=== PATIENT | male | born 1965 | race Hispanic/Latino ===

== ENCOUNTER 2020-11-28 16:31 | Emergency (ER) | payer BC, SELFPAY ==
[2020-11-28 16:50] VITALS: BP 151/75; PULSE 86; RESP 18; TEMP 36.1; O2SAT 100
--- NOTE | 2020-11-28 16:55 | ED.CHESTPAIN ---
HPI - Chest Pain General Chief Complaint: Chest Pain Stated Complaint: Chest Pain Time Seen by Provider: 11/28/20 16:50 Source: patient and RN notes reviewed Mode of arrival: ambulatory Limitations: no limitations History of Present Illness HPI narrative: 55-year-old male presents to the [facility] with complaints of left-sided chest pain that is gradually gotten worse over the last 5 days. Increased fatigue with shortness of breath. Denies fevers, abdominal pain. No nausea vomiting or diarrhea. Patient states he feels like he has a chest tightness. Reports that it feels like his heart is racing at times. States my heart is not working right. Patient got concerned when he tried working and walking and he just got so fatigued he could not work. Related Data Allergies Allergy/AdvReac Type Severity Reaction Status Date / Time Penicillins Allergy Unknown Verified 06/26/12 08:52 Review of Systems Review of Systems: All systems reviewed & are unremarkable except as noted in HPI and below Constitutional: Constitutional: Reports no additional constitutional complaints, Denies chills and Denies fever(s) Eyes: Eyes: Reports no additional eye complaints ENT: Reports system reviewed and no additional complaints, except as documented Cardiovascular: Cardiovascular: Reports as per HPI, Reports chest pain and Reports rapid heart rate Respiratory: Respiratory: Reports as per HPI, Denies cough, Reports dyspnea and Denies wheezing Gastrointestinal: Gastrointestinal: Reports no additional gastrointestinal complaints Genitourinary: Genitourinary: Reports no additional male genitourinary complaints Musculoskeletal: Musculoskeletal: Reports no additional musculoskeletal complaints Integumentary/Breasts: Skin/Breast: Reports system reviewed and no additional complaints, except as docu Neurologic: Reports system reviewed and no additional complaints, except as documented Psychiatric: Psychiatric: Reports no additional psychiatric complaints Allergic/Immunologic: Allergic/Immunologic: Reports no additional allergic/immunologic complaints [facility] Past Medical History Medical History (Updated 11/28/20 @ 17:24 by Shanique Taylor) Patient denies medical problems Patient denies significant medical history Surgical History Surgical History (Updated 11/28/20 @ 16:56 by Shanique Taylor) No significant past surgical history Social History Social History (Updated 11/28/20 @ 17:20 by Shanique Taylor) Gender identity (if verbalized by the patient): Male Comments At the time of my signature, I reviewed and agree with the nursing past medical, surgical, social, and family history. There is no relevant family history pertinent to the patient complaint. Exam Const: General: no acute distress and alert Nutritional Appearance: well nourished Orientation/consciousness: patient oriented x3 Limitations: no limitations HENMT: Head: normal to inspection Eyes: Pupils: Equal, round and reactive pupils present Neck: Neck: normal visual inspection, no lymphadenopathy and no meningeal signs Chest: Chest palpation & inspection: normal inspection of the chest Resp: Effort & Inspection: normal respiratory effort and no use of accessory muscles Auscultation: clear to auscultation bilaterally, no crackles, no rales, no rhonchi and no wheezes Cardio: Rate: regular rate Rhythm: regular rhythm GI: GI Palp: Yes Soft to palpation and No Tenderness to palpation present (GI) Back/Spine/Pelvis: Back: no CVA tenderness Skin: General skin exam: normal color Rashes: no rashes Wounds: no wounds Neuro: General: patient oriented x3, moves all extremities, no meningeal signs and no focal motor deficits Speech: normal speech Gait exam (Neuro): Normal gait present Extrem: General: normal to inspection and no pedal edema Psych: Appearance: grossly normal and well kempt Mental Status: mental status grossly normal Affect: normal affect Attitude: co
--- NOTE | 2020-11-28 16:57 | ECG_ITS ---
Measurements Intervals [place] Rate: 81 P: 66 [place]: 148 QRS: 18 QRSD: 81 T: 35 QT: 364 QTc: 424 Interpretive Statements SINUS RHYTHM EARLY PRECORDIAL R/S TRANSITION BASELINE ARTIFACT- I, II, III, AVR, AVL, AVF, V1 BORDERLINE ECG Electronically Signed On 11-29-2020 8:02:01 CDT by José Miguel Omalley D.O.
== END 2020-11-28 17:01 | disposition short-term general hospital (02) ==
LOC: EXPCOLL 16:40
PROVIDERS: Emergency Provider Nurse Practitioner
DX: R07.9 Chest pain, unspecified (principal)
CPT/HCPCS: 93005; 99213; G0463

== ENCOUNTER 2020-11-28 17:21 | Inpatient (IN) | payer BC, SELFPAY ==
--- NOTE | ~2020-11-28 | NM_ITS ---
EXAMINATION: NM GI bleeding DATE: 12/01/2020 11:05 INDICATION: Ongoing gastrointestinal bleed TECHNIQUE: 24.5 mCi Tc 99m in vitro labeled red cells administered intravenously. Scintigraphic imag es of the abdomen were obtained through 1 hour. FINDINGS: No pattern of abnormal activity is seen in the abdomen or pelvis to suggest gastrointestina l hemorrhage. IMPRESSION: 1. No scintigraphic evidence for active gastrointestinal bleeding. Reviewed, dictated and finalized at location A.
--- NOTE | ~2020-11-28 | XR_ITS ---
XR chest 2V DATE: 11/28/2020 17:50 INDICATION: Left-sided chest pressure. Weakness. Headache for 5 days. TECHNIQUE: PA and lateral views COMPARISON: None FINDINGS: Normal heart size. No hilar or mediastinal enlargement. No pulmonary infiltrate or consolidation, pleural effusion or pulmonary vascular congestion or pneumo thorax is detected. There is mild dextroscoliosis of the thoracic spine. IMPRESSION: No active cardiopulmonary disease Reviewed, dictated and finalized at location A.
--- NOTE | ~2020-11-28 | CT_ITS ---
EXAMINATION: CTA abdomen pelvis DATE: 12/01/2020 16:10 INDICATION: GI bleeding, concern for aortoenteric fistula TECHNIQUE: Computed tomographic angiography (CTA) of the abdomen and pelvis was performed with 100 mL Omnipaque-350 intravenous contrast. Maximum intensity projection 3D-reconstructions of the aorta and other arteries were constructed by the technologist on a separate workstation. The dose-length produ ct (DLP) was 403.28 mGy-cm. Automated exposure control and iterative reconstruction technique were em ployed. COMPARISON: None. FINDINGS: Minimal dependent atelectasis is present in the lung bases. The heart size is normal. The a bdominal aorta is normal without evidence of aneurysm or dissection. The celiac axis, superior mesent ramesh artery, and inferior mesenteric artery are normal. There are single renal arteries bilaterally. There is a 6 mm hyperdense focus in the proximal/mid descending colon on image 85. The liver, spleen, pancreas, gallbladder, and adrenal glands are normal. The left kidney is unremarkable. There is a 1. 7 cm cyst of the right kidney. No pathologically enlarged abdominal or pelvic lymph nodes are identif ied. There is no free intraperitoneal gas or evidence of bowel obstruction. The appendix is normal. T here is a moderate to large sized diverticulum of the third portion of the duodenum. The appearance o f layering dependent intravenous contrast relates to mass effect on a tiny vessel coursing posterior to the diverticulum. There is moderate lumbar spondylosis. IMPRESSION: 1. Focal area of hyperattenuation in the descending colon which could reflect contrast extravasation or arteriovenous malformation. Absence of noncontrast comparison makes further characterization diffi cult. Reviewed, dictated and finalized at location A. IMPRESSION: 1. Focal area of hyperattenuation in the descending colon which could reflect c ontrast extravasation or arteriovenous malformation. Absence of noncontrast com parison makes further characterization difficult.
[2020-11-28 17:29] VITALS: BP 157/76; PULSE 88; RESP 16; TEMP 36.8; O2SAT 100
--- NOTE | 2020-11-28 17:31 | ECG_ITS ---
Measurements Intervals [place] Rate: 88 P: 59 CT: 149 QRS: 42 QRSD: 89 T: 45 QT: 359 QTc: 435 Interpretive Statements SINUS RHYTHM INCOMPLETE RIGHT BUNDLE BRANCH BLOCK BASELINE ARTIFACT- I, II, III BORDERLINE ECG Electronically Signed On 11-28-2020 19:49:16 CDT by José Miguel Omalley D.O.
[2020-11-28 17:44] LABS: Basophils Percent Auto 0.5 % (0.2-1.2); Eosinophils Absolute Auto 0.1 K/mm3 (0-0.3); Eosinophils Percent Auto 0.8 % (0-4.4); Immature Granulocyte Absolute 0.06 K/mm3 (0.00-0.031); Immature Granulocyte Percent A 0.7 % (0-0.5); Lymphocytes Percent Auto 23.7 % (18.3-44.2); Mean Corpuscular HGB Conc 32.7 g/dl (32-36); Mean Corpuscular Hemoglobin 33.1 pg (26-34); Mean Corpuscular Volume 101.3 fl (80-100); Monocytes Absolute Auto 0.5 K/mm3 (0.1-0.6); Monocytes Percent Auto 6.4 % (2.6-8.5); Neutrophils Absolute Auto 5.7 K/mm3 (1.3-6.7); Neutrophils Percent Auto 67.9 % (45.5-73.1); Nucleated Red Blood Cells Absolute Auto 0.1 K/mm3 (0.0-0.012); Nucleated Red Blood Cells Perc 0.8 % (0.0-0.2); Platelet Count Result 295 k/mm3 (150-375); Red Cell Distribution Width 17.5 % (11.5-14.5); White Blood Count 8.4 K/mm3 (4.5-10.0)
[2020-11-28 17:56] LABS: Alanine Aminotransferase 17 U/L (4-50); Albumin Level 3.4 g/dL (3.5-5.1); Alkaline Phosphatase 79 U/L (38-126); Anion Gap 6 mmol/L (8-16); Aspartate Amino Transferase 22 U/L (17-59); Bilirubin,Total < 0.1 mg/dL (0.2-1.3); Blood Urea Nitrogen 14 mg/dL (9-20); Calcium 8.3 mg/dL (8.4-10.2); Carbon Dioxide 22 mmol/L (22-30); Chloride 110 mmol/L (98-107); Estimated CRCL calculation 95 ml/min; Estimated Glomerular Filt Rate > 60; Glucose 112 mg/dL (65-110); Potassium 3.7 mmol/L (3.4-5.0); Sodium 138 mmol/L (137-145)
[2020-11-28 17:59] LABS: Hematocrit 16.2 % (42.0-52.0); Hemoglobin 5.3 g/dL (14.0-18.0)
[2020-11-28 18:11] VITALS: BP 159/74; PULSE 85; RESP 20; O2SAT 98
--- NOTE | 2020-11-28 18:16 | ED.GENADULT ---
HPI - General Adult General Chief complaint: Weakness Stated complaint: Headache x 5 days Time Seen by Provider: 11/28/20 18:07 Source: patient History of Present Illness HPI narrative: Patient is a 55 y/o male complaining of severe weakness for about 5 days. He states that minimal exertion like walking short distance makes his symptoms worse. He also has some sore throat, headache. He has no fever or cough. He noticed some dark stools. He has no abdominal pain. Related Data Home Medications Medication Instructions Recorded Confirmed No Home Medications 11/28/20 11/28/20 Allergies Allergy/AdvReac Type Severity Reaction Status Date / Time Penicillins Allergy Unknown Unknown Verified 11/28/20 18:17 Review of Systems Constitutional: Constitutional: Denies chills, Denies fever(s), Reports headache(s), Reports lethargy, Reports malaise and Denies weakness Eyes: Eyes: Denies blurry vision ENT: Reports headache(s), Denies neck pain and Reports sore throat Cardiovascular: Cardiovascular: Denies chest pain and Denies dyspnea Respiratory: Respiratory: Denies cough and Denies dyspnea Gastrointestinal: Gastrointestinal: Denies abdominal pain, Reports melena, Denies diarrhea, Denies nausea and Denies vomiting Genitourinary: Genitourinary: Denies hematuria and Denies dysuria Musculoskeletal: Musculoskeletal: Denies back pain and Denies neck pain Neurologic: Reports headache(s) and Reports weakness PMFSH Past Medical History Medical History Patient denies medical problems Patient denies significant medical history Surgical History Surgical History No significant past surgical history Social History Social History Gender identity (if verbalized by the patient): Male Exam Const: General: no acute distress and well developed Orientation/consciousness: oriented to person, oriented to place, oriented to time and patient oriented x3 HENMT: Head: normocephalic Ears: external ears normal General nose exam: Normal external nose present Eyes: General: appearance normal, both eyes and all related structures Conjunctivae: conjunctivae normal Neck: Neck: normal visual inspection and full ROM Chest: Chest palpation & inspection: normal inspection of the chest and no tenderness Resp: Effort & Inspection: normal respiratory effort Auscultation: clear to auscultation bilaterally Cardio: Rate: regular rate Rhythm: regular rhythm GI: GI Palp: No abdominal tenderness and Yes Soft to palpation Skin: General skin exam: turgor normal and pallor Neuro: General: oriented to person, oriented to place, oriented to time and patient oriented x3 Cognition (Neuro): normal cognition Extrem: General: normal to inspection, full ROM and no pedal edema Psych: Appearance: grossly normal Mental Status: mental status grossly normal Affect: normal affect Course Consultations Consultation #1: Discussed with Dr. Mcdaniels, who agrees to consult. Date: 11/28/20 Time: 18:32 Consultation #2: Discussed with DANIEL Whitley, who agrees to admitted. Date: 11/28/20 Time: 18:40 Vital Signs Vital signs: Vital Signs Temperature 36.8 C 11/28/20 17:29 Pulse Rate 88 11/28/20 17:29 Respiratory Rate 16 11/28/20 17:29 Blood Pressure 157/76 H 11/28/20 17:29 Pulse Oximetry 100 11/28/20 17:29 Temperature 36.8 C 11/28/20 17:29 Pulse Rate 80 11/28/20 19:08 Respiratory Rate 25 H 11/28/20 19:08 Blood Pressure 134/66 11/28/20 19:08 Pulse Oximetry 100 11/28/20 19:08 Medical Decision Making Vital Signs Vital Signs: Vital Signs Temperature 36.8 C 11/28/20 17:29 Pulse Rate 88 11/28/20 17:29 Respiratory Rate 16 11/28/20 17:29 Blood Pressure 157/76 H 11/28/20 17:29 Pulse Oximetry 100 11/28/20 17:29 Temperature 36.8 C 11/28/20 17:29 Pul
[2020-11-28 18:17] VITALS: PULSE 85
[2020-11-28] MEDS: PANTOPRAZOLE SODIUM IV 40 MG VIAL IV PUSH (18:29)
[2020-11-28 19:08] VITALS: BP 134/66; PULSE 80; RESP 25; O2SAT 100
[2020-11-28 20:41] LABS: Add Urine Microscopic? YES; Appearance Urine Clear (Clear); Bilirubin Urine Negative (Negative); Blood Urine Negative (Negative); Color Urine Straw (Yellow); Glucose Urine UA Negative (Negative); Ketones Urine Trace mg/dL (Negative); Leukocyte Esterase Ur Negative LEU/UL (Negative); Mucus Urine Rare /lpf; Nitrate Urine Negative (Negative); Protein Urine Negative (Negative); Specific Grav Ur 1.018 (1.001-1.035); Urobilinogen Urine Negative mg/dL (<2.0); WBC Urine 0-3 /hpf
--- NOTE | 2020-11-28 21:03 | PC.NURSE ---
[facility] states she will give us a call when room is clean.
--- NOTE | 2020-11-28 22:11 | ADMGEN ---
This patient, Deion Juan, was admitted to [facility] Surg Room 327-01. Patient/family oriented to hospital policies and general routines including ID bracelet, bed and alarms, visiting hours, pain management, procedures, bathroom and other care routines, personal items, smoking policy, room service/diet, and visiting hours. Information on how to activate the Rapid Response Team has been discussed. Patient/Family are encouraged to report perceived risks to care and to ask questions if they do not understand what they are told or what they should do.
--- NOTE | 2020-11-28 22:33 | PM.IMHP ---
H&P: HPI History of Present Illness Date/Time: 11/28/20 22:33 Chief Complaint: Weakness Narrative: This is a 55-year-old male with no significant past medical history. Patient presented today to our emergency room after he was seen at urgent care location and after drawing preliminary lab work results came back with a hemoglobin of 5. Patient noted that he has had black stools for the last 5 days, no bright red blood per rectum, no hematemesis, no nausea no vomiting, no abdominal pain, has had shortness of breath, fatigue, palpitations and chest pains, no weight loss, no changes in bowel habits no changes in stool character. Patient states that he has been taking Motrin as of lately due to headaches and drinks a lot of coffee. Patient has been placed in observation. Review of Systems Review of Systems: Palpitations, fatigue ,shortness of breath ,chest pains, black tarry stools. Constitutional: Constitutional: Denies chills, Reports fatigue, Denies fever(s), Reports lethargy, Denies malaise, Denies poor appetite, Reports weakness and Denies weight loss Eyes: Eyes: Denies change in vision ENT: Denies dysphagia, Denies vertigo, Denies dizziness, Denies nasal congestion, Denies nasal discharge and Denies nasal obstruction Cardiovascular: Cardiovascular: Reports palpitations, Reports dyspnea and Reports dyspnea on exertion Respiratory: Respiratory: Denies cough Gastrointestinal: Gastrointestinal: Reports melena, Denies hematochezia, Denies GI cramping, Denies dyspepsia, Denies heartburn, Denies nausea and Denies vomiting Genitourinary: Genitourinary: Reports no additional male genitourinary complaints Musculoskeletal: Musculoskeletal: Reports no additional musculoskeletal complaints Integumentary/Breasts: Skin/Breast: Reports system reviewed and no additional complaints, except as docu Neurologic: Reports system reviewed and no additional complaints, except as documented Psychiatric: Psychiatric: Reports no additional psychiatric complaints Endocrine: Endocrine: Reports no additional endocrine complaints Hematologic/Lymphatic: Hematologic/Lymphatic: Reports no additional hematologic/lymphatic complaints Allergic/Immunologic: Allergic/Immunologic: Reports no additional allergic/immunologic complaints PMFSH Past Medical History Medical History Patient denies medical problems Patient denies significant medical history Surgical History Surgical History No significant past surgical history Social History Social History Gender identity (if verbalized by the patient): Male Meds Home Medications and Allergies Home Medications Medication Instructions Recorded Confirmed Type No Home Medications 11/28/20 11/28/20 History Allergies Allergy/AdvReac Type Severity Reaction Status Date / Time Penicillins Allergy Unknown Unknown Verified 11/28/20 18:17 Vital Signs Vital Signs - 24 hr 11/28/20 17:29 11/28/20 18:11 11/28/20 18:17 Temperature 98.2 F Pulse Rate 88 85 85 Respiratory Rate 16 20 Blood Pressure 157/76 H 159/74 H Pulse Oximetry 100 98 11/28/20 19:08 Temperature Pulse Rate 80 Respiratory Rate 25 H Blood Pressure 134/66 Pulse Oximetry 100 Exam Narrative: [facility]aying in [facility] Const: General: cooperative, comfortable, no acute distress, well developed, alert, awake, Physically active and other (Well-appearing) Nutritional Appearance: average body habitus Orientation/consciousness: patient oriented x3 HENMT: Head: normal to inspection, normocephalic and atraumatic Ears: hearing grossly normal bilaterally General nose exam: Normal external nose present Face and sinus: normal facial exam Mouth: Yes Normal oral and palatal mucosa present Eyes: General: appearance normal, both eyes and all related structures Alignment and Position
[2020-11-28 22:39] VITALS: BP 122/63; PULSE 83; RESP 21; TEMP 37; O2SAT 100
[2020-11-28 22:40] VITALS: BMI 27.0
[2020-11-29] VITALS (31 sets, daily range): BP systolic 103–136; BP diastolic 53–80; PULSE 66–101; RESP 16–24; TEMP 36.4–37.3; O2SAT 99–100
[2020-11-29] MEDS: SODIUM CHLORIDE 0.9% IV 250 ML 30 ML IV CONT ×3 (00:17→20:29)
[2020-11-29] MEDS: ACETAMINOPHEN 500 MG TABLET 1000 MG PO (00:18)
[2020-11-29 08:23] LABS: Basophils Percent Auto 0.3 % (0.2-1.2); Eosinophils Absolute Auto 0.1 K/mm3 (0-0.3); Eosinophils Percent Auto 1.2 % (0-4.4); Immature Granulocyte Absolute 0.06 K/mm3 (0.00-0.031); Immature Granulocyte Percent A 0.9 % (0-0.5); Lymphocytes Absolute Auto 1.42 K/mm3 (0.9-3.2); Mean Corpuscular HGB Conc 31.7 g/dl (32-36); Mean Corpuscular Hemoglobin 30.8 pg (26-34); Mean Corpuscular Volume 96.9 fl (80-100); Mean Platelet Volume 8.9 fl (7.4-10.4); Monocytes Absolute Auto 0.4 K/mm3 (0.1-0.6); Monocytes Percent Auto 6.4 % (2.6-8.5); Neutrophils Absolute Auto 4.7 K/mm3 (1.3-6.7); Neutrophils Percent Auto 70.2 % (45.5-73.1); Nucleated Red Blood Cells Absolute Auto 0.1 K/mm3 (0.0-0.012); Nucleated Red Blood Cells Perc 0.7 % (0.0-0.2); Platelet Count Result 216 k/mm3 (150-375); Red Blood Count 1.95 M/mm3 (4.6-6.20); Red Cell Distribution Width 17.9 % (11.5-14.5); White Blood Count 6.8 K/mm3 (4.5-10.0)
[2020-11-29 08:30] LABS: Hematocrit 18.9 % (42.0-52.0)
--- NOTE | 2020-11-29 08:33 | PM.IMPN ---
Progress Note: A&P Assessment and Plan (1) GI bleed: Code(s): K92.2 - Gastrointestinal hemorrhage, unspecified Status: Acute Assessment and Plan: Reported melena ongoing for 5 days prior to presentation Appreciate GI consultation NPO Continue protonix (2) Acute blood loss anemia: Code(s): D62 - Acute posthemorrhagic anemia Status: Acute Assessment and Plan: Secondary to GI bleed as above. Symptomatic with shortness of breath, palpitations, chest pain. Received 1 unit pRBC this morning Hgb remains low at 6.0, therefore will transfuse 1 additional unit Repeat H&H 1 hour following transfusion, and continue to monitor H&H q6h (3) Chest pain: Code(s): R07.9 - Chest pain, unspecified Status: Inactive Assessment and Plan: Likely secondary to anemia with same onset as melena and already improved. Will check troponins and order echocardiogram EKG reviewed with RBBB (4) Weakness: Code(s): R53.1 - Weakness Status: Acute Assessment and Plan: As above, likely related to anemia Ambulate with assistance Fall precautions Subjective Date/time seen: 11/29/20 08:33 Interval history: Date of service: 11/29/2020 Deion Juan is an extremely pleasant 55-year-old male with no significant past medical history who is seen in follow-up for GI bleed. He is feeling better today. He had been struggling with a headache for several days but his headache has now resolved. He continues to feel weak. He endorses palpitations and left-sided chest pressure. He has had decreased exercise tolerance over the past few days and endorse [place]. He endorses lightheadedness. No dizziness. He denies abdominal or epigastric pain. He does report frequent GERD symptoms. In regards to his chest pain, he reported this started at the same time has he noticed the melena about 5 days ago. His chest pain has significantly improved. He does endorse some pain radiating to the left arm. Denied jaw pain. No sweats or anxiety. He had a dark stool this morning. Review of Systems Review of Systems: All systems reviewed & are unremarkable except as noted in HPI and below Exam Narrative: Mr. Juan is a well-nourished, well-appearing 55-year-old male who is lying semi recumbent in bed. He appears comfortable and is in NARD. Neuro: awake, alert and oriented x4, speech clear, no focal neuro deficits noted HEENMT: normocephalic, atraumatic, EOMI, sclerae anicteric, moist oral mucosa Neck: supple, no lymphadenopathy Respiratory: clear to auscultation bilaterally, nonlabored breathing Chest: Nontender to palpation of anterior chest wall Cardio: regular rate, regular rhythm with S1-S2 Abdomen: nondistended, normoactive bowel sounds, soft, nontender to palpation, no epigastric tenderness Extremities: no edema, erythema, or tenderness to palpation, DP pulses 2+ bilaterally Skin: no rashes or lesions, warm and dry Psych: appropriate mood and affect, judgment and insight intact Objective Data Vital Signs Vital Signs: Vital Signs - 24 hr 11/28/20 17:29 11/28/20 18:11 11/28/20 18:17 Temperature 98.2 F Pulse Rate 88 85 85 Respiratory Rate 16 20 Blood Pressure 157/76 H 159/74 H Pulse Oximetry 100 98 11/28/20 19:08 11/28/20 22:39 11/29/20 00:00 Temperature 98.6 F Pulse Rate 80 83 90 Respiratory Rate 25 H 21 H Blood Pressure 134/66 122/63 Pulse Oximetry 100 100 11/29/20 00:45 11/29/20 01:00 11/29/20 01:10 Temperature 98.7 F 97.7 F 98.7 F Pulse Rate 75 75 75 Respiratory Rate 21 H 21 H 21 H Blood Pressure 133/67 133/67 133/67 Pulse Oximetry 100 100 100 11/29/20 01:30 11/29/20 02:30 11/29/20 02:39 Temperature 98.5 F 98.0 F 98.0 F Pulse Rate 76 86 86 Respiratory Rate 21 H 20 20 Blood Pressure 129/64 115/65 115/65 Pulse Oximetry 100 99 99 11/29/20 03:30 11/29/20 04:00 11/29/20 04:33 Temperature 97.8 F 98.4 F Pulse Rate 74 8
--- NOTE | 2020-11-29 08:45 | WPDGICN ---
Assessment and Plan Assessment and plan (1) Melena: Code(s): K92.1 - Melena Status: Acute Assessment and Plan: will proceed with urgent egd, probable bleeding peptic ulcer/esophagitis, etc iv protonix, npo and blood transfusion to keep hb>7 (2) GI bleed: Code(s): K92.2 - Gastrointestinal hemorrhage, unspecified Status: Acute Assessment and Plan: iv protonix and medical support egd today (3) Acute blood loss anemia: Code(s): D62 - Acute posthemorrhagic anemia Status: Acute Assessment and Plan: he already got blood transfusion and feeling better never had a colonoscopy, we can plan to do it as outpatient (4) Weakness: Code(s): R53.1 - Weakness Status: Acute (5) NSAID long-term use: Code(s): Z79.1 - retirement (current) use of non-steroidal anti-inflammatories (NSAID) Status: Acute GI Consult Note Consult date/time: 11/29/20 08:45 Reason for consult: melena HPI: Deion Juan is a 55 year old male with no major medical problems here with 5 weeks of progressive weakness and also dark tarry stool. He says that has been using more ibuprofen than usual because pain at his denture site. Never had scopes and does not use normally any antacids. Hb on arrival 5.1 and received blood transfusion, he is feeling better now. Review of Systems Constitutional: Constitutional: Reports fatigue and Reports weakness Eyes: Eyes: Denies blurry vision ENT: Reports Normal hearing present Cardiovascular: Cardiovascular: Denies chest pain Respiratory: Respiratory: Reports dyspnea on exertion Gastrointestinal: Gastrointestinal: Reports melena Genitourinary: Genitourinary: Denies dysuria Musculoskeletal: Musculoskeletal: Denies neck pain Integumentary/Breasts: Skin/Breast: Reports system reviewed and no additional complaints, except as docu Neurologic: Reports system reviewed and no additional complaints, except as documented Psychiatric: Psychiatric: Reports no additional psychiatric complaints PMFSH Past Medical History Medical History (Updated 11/29/20 @ 12:16 by Clifton Nelson MD) Melena NSAID long-term use Patient denies medical problems Patient denies significant medical history Surgical History Surgical History No significant past surgical history Social History Social History Alcohol intake: current Drinks per week: 2 Substance use: never Gender identity (if verbalized by the patient): Male Spiritual care concerns: No Meds Home Medications and Allergies Home Medications Medication Instructions Recorded Confirmed Type No Home Medications 11/28/20 11/28/20 History Allergies Allergy/AdvReac Type Severity Reaction Status Date / Time Penicillins Allergy Unknown Unknown Verified 11/28/20 18:17 Vital Signs Vital Signs - 24 hr 11/28/20 17:29 11/28/20 18:11 11/28/20 18:17 Temperature 98.2 F Pulse Rate 88 85 85 Respiratory Rate 16 20 Blood Pressure 157/76 H 159/74 H Pulse Oximetry 100 98 11/28/20 19:08 11/28/20 22:39 11/29/20 00:00 Temperature 98.6 F Pulse Rate 80 83 90 Respiratory Rate 25 H 21 H Blood Pressure 134/66 122/63 Pulse Oximetry 100 100 11/29/20 00:45 11/29/20 01:00 11/29/20 01:10 Temperature 98.7 F 97.7 F 98.7 F Pulse Rate 75 75 75 Respiratory Rate 21 H 21 H 21 H Blood Pressure 133/67 133/67 133/67 Pulse Oximetry 100 100 100 11/29/20 01:30 11/29/20 02:30 11/29/20 02:39 Temperature 98.5 F 98.0 F 98.0 F Pulse Rate 76 86 86 Respiratory Rate 21 H 20 20 Blood Pressure 129/64 115/65 115/65 Pulse Oximetry 100 99 99 11/29/20 03:30 11/29/20 04:00 11/29/20 04:33 Temperature 97.8 F 98.4 F Pulse Rate 74 85 78 Respiratory Rate 20 20 Blood Pressure 112/69 114/70 Pulse Oximetry 100 100 11/29/20 04:50 11/29/20 05:50 11/29/20 06:00
[2020-11-29 09:12] LABS: Anion Gap 4 mmol/L (8-16); Blood Urea Nitrogen 22 mg/dL (9-20); Calcium 7.5 mg/dL (8.4-10.2); Carbon Dioxide 23 mmol/L (22-30); Chloride 110 mmol/L (98-107); Estimated CRCL calculation 113 ml/min; Estimated Glomerular Filt Rate > 60; Glucose 107 mg/dL (65-110); Potassium 4.1 mmol/L (3.4-5.0); Sodium 137 mmol/L (137-145)
[2020-11-29] MEDS: LACTATED RINGERS 1,000 ML 150 ML IV CONT (12:32)
--- NOTE | 2020-11-29 12:53 | WPDANESEPPF ---
Anes - Initial Pre Proc Eval Procedure: Operation Date: 11/29/20 13:45 Proposed Procedures p Esophagogastroduodenoscopy - Clifton Nelson MD Date/Time: 11/29/20 12:53 Surgeon: Corine Anderson PA-C Pre Op Diagnosis: Weakness, Anemia Patient Data Age: 55 Gender: M Height: 1.6 m Weight: 69.2 kg Last Vital Signs Temp 97.5 F L 11/29/20 12:28 Pulse 88 11/29/20 12:28 Resp 20 11/29/20 12:28 BP 116/75 11/29/20 12:28 Pulse Ox 100 11/29/20 12:28 Allergies Allergy/AdvReac Type Severity Reaction Status Date / Time Penicillins Allergy Unknown Unknown Verified 11/29/20 12:26 Home Medications Medication Instructions Recorded Confirmed Type No Home Medications 11/28/20 11/28/20 History Laboratory Tests 11/28/20 11/28/20 11/28/20 17:34 17:34 20:22 WBC 8.4 K/mm3 K/mm3 (4.5-10.0) RBC 1.60 M/mm3 L M/mm3 (4.6-6.20) Hgb 5.3 g/dL L* g/dL (14.0-18.0) Hct 16.2 % L* % (42.0-52.0) MCV 101.3 fl H fl (80-100) MCH 33.1 pg pg (26-34) MCHC 32.7 g/dl g/dl (32-36) RDW 17.5 % H % (11.5-14.5) Plt Count 295 k/mm3 k/mm3 (150-375) MPV 9.0 fl fl (7.4-10.4) Immature Gran % (Auto) 0.7 % H % (0-0.5) Neut % (Auto) 67.9 % % (45.5-73.1) Lymph % (Auto) 23.7 % % (18.3-44.2) Granite % (Auto) 6.4 % % (2.6-8.5) Eos % (Auto) 0.8 % % (0-4.4) Baso % (Auto) 0.5 % % (0.2-1.2) Lymph # (Auto) 2.00 K/mm3 K/mm3 (0.9-3.2) Granite # (Auto) 0.5 K/mm3 K/mm3 (0.1-0.6) Eos # (Auto) 0.1 K/mm3 K/mm3 (0-0.3) Baso # (Auto) 0.0 K/mm3 K/mm3 (0.0-0.1) Abs Immat Gran (auto) 0.06 K/mm3 H K/mm3 (0.00-0.031) Absolute Neuts (auto) 5.7 K/mm3 K/mm3 (1.3-6.7) Absolute Nucleated RBC 0.1 K/mm3 H K/mm3 (0.0-0.012) Nucleated RBC % 0.8 % H % (0.0-0.2) Sodium 138 mmol/L mmol/L (137-145) Potassium 3.7 mmol/L mmol/L (3.4-5.0) Chloride 110 mmol/L H mmol/L (98-107) Carbon Dioxide 22 mmol/L mmol/L (22-30) Anion Gap 6 mmol/L L mmol/L (8-16) BUN 14 mg/dL mg/dL (9-20) Creatinine 0.70 mg/dL mg/dL (0.7-1.3) Estim Creat Clear Calc 95 ml/min ml/min Estimated GFR > 60 (59 - ) Glucose 112 mg/dL H mg/dL (65-110) Calcium 8.3 mg/dL L mg/dL (8.4-10.2) Total Bilirubin < 0.1 mg/dL L mg/dL (0.2-1.3) AST 22 U/L U/L (17-59) ALT 17 U/L U/L (4-50) Alkaline Phosphatase 79 U/L U/L (38-126) Total Protein 6.0 g/dL L g/dL (6.3-8.2) Albumin 3.4 g/dL L g/dL (3.5-5.1) Urine Color Straw (Yellow) Urine Appearance Clear (Clear) Urine pH 5.0 (5.0-9.0) Ur Specific [place] 1.018 (1.001-1.035) Urine Protein Negative mg/dL mg/dL (Negative) Urine Glucose (UA) Negative mg/dL mg/dL (Negative) Urine Ketones Trace mg/dL mg/dL (Negative) Ur Blood (Man) Negative (Negative) Urine Nitrate Negative (Negative) Urine Bilirubin Negative (Negative) Urine Urobilinogen Negative mg/dL mg/dL (<2.0) Leukocyte Esterase Rfl Negative LAURIE/UL LAURIE/UL (Negative) Urine WBC 0-3 /hpf /hpf Urine Mucus Rare /lpf /lpf Blood Type Antibody Screen Crossmatch 11/28/20 11/29/20 11/29/20 20:40 08:12 08:12 WBC 6.8 K/mm3 K/mm3 (4.5-10.0) RBC 1.95 M/mm3 L M/mm3 (4.6-6.20) Hgb 6.0 g/dL L* g/dL (14.0-18.0) Hct 18.9 % L* % (42.0-52.0) MCV 96.9 fl fl (80-100) MCH 30.8 pg D pg (26-34) MCHC 31.7 g/dl L g/dl (32-36) RDW 17.9 % H % (11.5-14.5) Plt Count
[2020-11-29 15:57] LABS: Hemoglobin 6.5 g/dL (14.0-18.0)
[2020-11-29 15:58] LABS: Hematocrit 20.8 % (42.0-52.0)
--- NOTE | 2020-11-29 16:31 | PC.NURSE ---
Pt blood unit #3 at 1050 on the floor, vitals doc 135/80 89 16 100% 98.0. 1105 bp123/65 89 18 100% 98.9. 1205 116/75 89 16 99 97.5 final vitals were listed as 1050 (but the last set). Pt to GI lab at 1210 via stretcher. HOUSEKEEPING/LAUNDRY unable to record vitals before GI lab finished the transfusion unit. Unsure exactly what time the unit finished as finish vitals were charted at 1050. H&H drawn at 1455 as pt returned to floor.
[2020-11-29 17:30] LABS: Troponin I < 0.012 ng/mL (0.000-0.034)
[2020-11-29] MEDS: PANTOPRAZOLE SODIUM IV 40 MG VIAL IV PUSH ×2 (17:49→21:00)
[2020-11-29] MEDS: TUBING, BLOOD PLUM PUMP TUBING 1 EACH XX ×2 (20:28→20:29)
[2020-11-30] VITALS (15 sets, daily range): BP systolic 101–124; BP diastolic 63–79; PULSE 76–111; RESP 16–20; TEMP 36.6–37.3; O2SAT 100
--- NOTE | 2020-11-30 | ECHO_ITS ---
Patient Info Name: Deion Juan Age: 55 years : 1965 Gender: Male Ht: 63 in Wt: 152 lbs BSA: 1.77 m2 HR: 104 bpm BP: 101 / 64 mmHg Heart Rhythm: Sinus Rhythm Technical Quality: Good Exam Date: 11/30/2020 2:06 PM Exam Location: [facility] Patient Status: Inpatient Admit Date: 11/28/2020 Staff Ordering Physician: Corine Anderson PA-C Agriculture Laborer: Anaya Gutierrez RDCS Attending Provider: Corine Anderson PA-C Referring Physician: Bettie CLIFFORD Exam Type: CA echo doppler color flow Study Info Indications I45.10 - Unspecified right bundle-branch block R07.9 - Chest pain, unspecified Complete two-dimensional, color flow and Doppler transthoracic echocardiogram is performed. Summary 1. Complete two-dimensional, color flow and Doppler transthoracic echocardiogram is performed. 2. Left ventricular chamber dimension is normal. 3. Left ventricular systolic function is normal, estimated at 60-65%. 4. There is mildly increased left ventricular wall thickness. 5. The left ventricular diastolic function is grade I diastolic dysfunction. 6. Global longitudinal strain is normal at -18 %. 7. There is mild tricuspid valve regurgitation. Left Ventricle Left ventricular chamber dimension is normal. Left ventricular systolic function is normal, estimated at 60-65%. There is mildly increased left ventricular wall thickness. The left ventricular diastolic function is grade I diastolic dysfunction. Global longitudinal strain is normal at -18 %. Right Ventricle Right ventricular chamber dimension is normal. Right ventricular systolic function is normal. Left Atria Left atrial chamber dimension is normal. Right Atria Right atrial chamber dimension is normal. Atrial Septum Intact interatrial septum visualized by color flow imaging. Aortic Valve The aortic valve is trileaflet. There is no aortic valve sclerosis. There is no aortic valve stenosis. There is trace aortic valve regurgitation. Pulmonic Valve The pulmonic valve is normal. There is no pulmonic valve stenosis. There is trace pulmonic regurgitation. Mitral Valve The mitral valve has normal leaflets. There is no mitral valve stenosis. There is trace mitral valve regurgitation. Tricuspid Valve The tricuspid valve leaflets are normal. There is no significant tricuspid valve stenosis. There is mild tricuspid valve regurgitation. No pulmonary hypertension, estimated pulmonary arterial systolic pressure is 31 mmHg. Pericardium/Pleural The pericardium appears normal. There is no pericardial effusion. Inferior Vena Cava Normal inferior vena cava with >50% collapse upon inspiration consistent with normal right atrial pressure, 10 mmHg. Aorta The aortic root size at the sinus of Valsalva is normal. The prox ascending aorta size is normal. Left Ventricular Outflow Tract Name Value Normal LVOT 2D LVOT Diameter 2.0 cm LVOT Doppler LVOT Peak Gradient 5 mmHg LVOT Mean Gradient 3 mmHg LVOT VTI 16 cm LVOT V
[2020-11-30 01:33] LABS: Hemoglobin 6.8 g/dL (14.0-18.0)
[2020-11-30] MEDS: SODIUM CHLORIDE 0.9% IV 250 ML 30 ML IV CONT ×2 (06:12→18:40)
[2020-11-30] MEDS: PANTOPRAZOLE SODIUM IV 40 MG VIAL IV PUSH (08:52)
--- NOTE | 2020-11-30 09:40 | PM.IMPN ---
Progress Note: A&P Assessment and Plan (1) GI bleed: Code(s): K92.2 - Gastrointestinal hemorrhage, unspecified Status: Acute Assessment and Plan: Reported melena ongoing for 5 days prior to presentation. Still having melenic stools. EGD yesterday showed moderate ulcerative gastritis without active bleeding. Hematin noted in the duodenum likely from the stomach, but no active bleeding seen on EGD. Appreciate GI consultation Tolerating regular diet. Continue. Continue protonix b.i.d. Avoid NSAIDs. He will need a repeat EGD in 2 months to assess for healing and will schedule a screening colonoscopy at that time. (2) Acute blood loss anemia: Code(s): D62 - Acute posthemorrhagic anemia Status: Acute Assessment and Plan: Secondary to GI bleed as above. Hgb 5.3 at presentation. Initially symptomatic with shortness of breath, palpitations, chest pain. Symptoms resolved today. He is hemodynamically stable. He has received a total of 5 units pRBC with only minimal improvement in Hgb. Last Hgb was 6.8 prior to receiving 5th unit. Need for multiple transfusions raises concern for continued bleeding. Will reassess Hgb 1 hour following transfusion completion. Will discuss with GI need for possible repeat EGD if no improvement in H&H (3) Chest pain: Code(s): R07.9 - Chest pain, unspecified Status: Inactive Assessment and Plan: Likely secondary to anemia with same onset as melena. Resolved today. Troponin negative. Echocardiogram ordered and is pending EKG reviewed with RBBB (4) Weakness: Code(s): R53.1 - Weakness Status: Acute Assessment and Plan: As above, likely related to anemia. Significantly improved. Ambulate with assistance Fall precautions Subjective Date/time seen: 11/30/20 09:40 Interval history: Date of service: 11/30/2020 Deion Juan is an extremely pleasant 55-year-old male with no significant past medical history who is seen in follow-up for GI bleed. He is feeling a lot better today. States yesterday when he was walking to the bathroom with get dizzy but today he is able to get up and walk around without any dizziness or lightheadedness. He no longer has shortness of breath or palpitations. No chest pain today. He did have a dark stool last night that he described as ?purple red no bowel movements yet today. No abdominal pain, no epigastric pain. His headache has resolved entirely. He does complain of a dry mouth and he thinks this was because he did not have much to drink yesterday. He denies any urinary symptoms. Denies nausea, vomiting, fever, or chills. No additional concerns at this time. Review of Systems Review of Systems: All systems reviewed & are unremarkable except as noted in HPI and below Exam Narrative: Mr. Juan is a well-nourished, well-appearing 55-year-old male who is lying semi recumbent in bed. He appears comfortable and is in NARD. Neuro: awake, alert and oriented x4, speech clear, no focal neuro deficits noted HEENMT: normocephalic, atraumatic, EOMI, sclerae anicteric, moist oral mucosa Neck: supple, no lymphadenopathy Respiratory: clear to auscultation bilaterally, nonlabored breathing Chest: Nontender to palpation of anterior chest wall Cardio: regular rate, regular rhythm with S1-S2 Abdomen: nondistended, normoactive bowel sounds, soft, nontender to palpation Extremities: no edema, erythema, or tenderness to palpation, DP pulses 2+ bilaterally Skin: no rashes or lesions, warm and dry Psych: appropriate mood and affect, judgment and insight intact Objective Data Vital Signs Vital Signs: Vital Signs - 24 hr 11/29/20 10:50 11/29/20 12:00 11/29/20 12:28 Temperature 97.5 F L 97.5 F L Pulse Rate 88 86 88 Respiratory Rate 20 20 Blood Pressure 116/75 116/75 Pulse Oximetry 100 100 11/29/20 13:50 11/29/20 14:00 11/29/20 14:10 Temperature Pulse Rat
--- NOTE | 2020-11-30 10:19 | WPDANESPN ---
Anes - Prog Note Post-Op Date/Time: 11/30/20 10:19 Cardiovascular status: other Respiratory status: normal Airway patency: baseline Mental status: baseline Post-Op hydration status: normal Vital Signs: Last Vital Signs Temp 99.1 F 11/30/20 08:59 Pulse 98 11/30/20 08:59 Resp 18 11/30/20 08:59 BP 111/78 11/30/20 08:59 Pulse Ox 100 11/30/20 08:59 Pain Score (VAS): 2/10 I/O: Intake & Output 11/29/20 11/30/20 11/30/20 23:59 07:59 15:59 Intake Total 1050 500 590 Output Total 400 350 Balance 650 150 590 Laboratory Tests 11/30/20 01:04 11/29/20 08:12 11/28/20 11/29/20 11/29/20 20:40 15:07 16:37 Hgb 6.5 L* Hct 20.8 L* Troponin I < 0.012 Blood Type O Positive Antibody Screen Negative Crossmatch See Detail 11/30/20 01:04 Hgb 6.8 L* Hct 21.0 L Troponin I Blood Type Antibody Screen Crossmatch Post-procedural complaints: none Patient Feedback: Patient satisfied with anesthetic care.
[2020-11-30 10:26] LABS: Hematocrit 23.8 % (42.0-52.0); Hemoglobin 7.6 g/dL (14.0-18.0)
[2020-11-30 10:38] LABS: Anion Gap 5 mmol/L (8-16); Blood Urea Nitrogen 22 mg/dL (9-20); Calcium 7.6 mg/dL (8.4-10.2); Carbon Dioxide 22 mmol/L (22-30); Chloride 109 mmol/L (98-107); Estimated CRCL calculation 84 ml/min; Estimated Glomerular Filt Rate > 60; Glucose 122 mg/dL (65-110); Sodium 136 mmol/L (137-145)
--- NOTE | 2020-11-30 12:58 | WPDGIPROGNO ---
Progress Note: A&P Assessment and Plan (1) Melena: Code(s): K92.1 - Melena Status: Acute Assessment and Plan: hb only minimal improvement after transfusion will do EGD for second look given that hemoglobin did no go up as expected, also will check colonoscopy since never had one. He is agreeable to both tomorrow. (2) Erosive gastritis: Code(s): K29.60 - Other gastritis without bleeding Status: Acute Assessment and Plan: on ppi now avoid to use any more nsaid's (3) Acute blood loss anemia: Code(s): D62 - Acute posthemorrhagic anemia Status: Acute Assessment and Plan: continue to monitor h/h (4) NSAID long-term use: Code(s): Z79.1 - terminal carman (current) use of non-steroidal anti-inflammatories (NSAID) Status: Acute Subjective Date/time seen: 11/30/20 12:58 Interval history: he received about 4 units prbc and hb improved but not as expected, had one more large melanotic stool this morning but overall better since transfusion. Review of Systems Review of Systems: All systems reviewed & are unremarkable except as noted in HPI and below Exam Const: General: comfortable and no acute distress HENMT: General nose exam: Normal nares present Eyes: General: appearance normal, both eyes and all related structures Neck: Neck: no JVD Resp: Auscultation: clear to auscultation bilaterally Cardio: Rate: regular rate Rhythm: regular rhythm GI: Inspection: non-distended GI Palp: Yes Soft to palpation and No Guarding due to palpation present (GI) Auscultation: normal bowel sounds Skin: General skin exam: normal color Neuro: General: gait normal Speech: normal speech Extrem: General: normal to inspection Psych: Mental Status: mental status grossly normal Objective Data Vital Signs Vital Signs: Vital Signs - 24 hr 11/29/20 13:50 11/29/20 14:00 11/29/20 14:10 Temperature Pulse Rate 94 93 86 Respiratory Rate 24 H 22 H 24 H Blood Pressure 105/53 L 121/69 110/72 Pulse Oximetry 100 100 100 11/29/20 16:00 11/29/20 20:00 11/29/20 20:05 Temperature 98.6 F Pulse Rate 101 H 96 92 Respiratory Rate 16 Blood Pressure 116/67 Pulse Oximetry 99 11/29/20 20:15 11/29/20 20:30 11/29/20 21:30 Temperature 98.6 F 98.6 F 99.2 F Pulse Rate 92 92 100 Respiratory Rate 16 16 18 Blood Pressure 116/67 116/67 135/76 Pulse Oximetry 99 99 100 11/29/20 22:00 11/29/20 22:30 11/29/20 23:19 Temperature 99.2 F 99.2 F 99.1 F Pulse Rate 100 91 84 Respiratory Rate 18 18 18 Blood Pressure 135/76 136/66 103/64 Pulse Oximetry 100 100 99 11/30/20 00:00 11/30/20 04:00 11/30/20 06:00 Temperature 98.0 F Pulse Rate 87 76 94 Respiratory Rate 20 Blood Pressure 120/64 Pulse Oximetry 100 11/30/20 06:04 11/30/20 06:25 11/30/20 07:25 Temperature 99.1 F 99.1 F 98.6 F Pulse Rate 88 77 90 Respiratory Rate 18 18 18 Blood Pressure 121/63 101/64 117/65 Pulse Oximetry 100 100 100 11/30/20 08:00 11/30/20 08:59 Temperature 99.1 F 99.1 F Pulse Rate 78 98 Respiratory Rate 18 18 Blood Pressure 111/78 111/78 Pulse Oximetry 100 100 Intake/Output Intake/Output: Intake & Output 11/27/20 11/28/20 11/29/20 11/30/20 23:59 23:59 23:59 23:59 Intake Total 2428 1090 Output Total 1300 350 Balance 1128 740 Meds/Results Medications: Active Medications Generic Name Dose Route Start Last Admin Trade Name Clarkeq PRN Reason Stop Dose Admin Bisacodyl 20 mg 11/30/20 17:00 Bisacodyl 5 Mg Tablet Ec PO 11/30/20 17:01 ONCE ONE Magnesium Citrate 300 ml 12/01/20 04:00 Magnesium Citrate 300 Ml Btl PO 12/01/20 04:01 ONCE ONE Pantoprazole Sodium 40 mg 11/29/20 09:00 11/30/20 08:52 Pantoprazole Sodium Iv 40 Mg Vial IV PUSH 40 mg Q12HR GUIDO Administration Polyethylene Glycol 238 gm 11/30/20 17:00 Polyethylene Glycol 3350 238 Gm Bottle PO 11/30/20 17:01 ONCE ONE Radiology Results: ITS Impressi
--- NOTE | 2020-11-30 15:03 | PC.NURSE ---
On 11/30/20, the student, Estelle Maldonado, provided care and completed [facility] documentation on this patient. I have reviewed the student's documentation and agree with the findings.
--- NOTE | 2020-11-30 15:12 | PC.NURSE ---
On 11/30/20, the student, [facility] nursing instructor took vital signs, provided care and completed [employer] documentation on this patient. I have reviewed the student's documentation and agree with the findings.
[2020-11-30 16:42] LABS: Hemoglobin 6.4 g/dL (14.0-18.0)
[2020-11-30] MEDS: polyethylene glycoL 3350 238 GM BOTTLE PO (21:09)
[2020-11-30 23:48] LABS: Hematocrit 27.3 % (42.0-52.0); Hemoglobin 8.7 g/dL (14.0-18.0)
[2020-12-01] VITALS (18 sets, daily range): BP systolic 92–156; BP diastolic 48–71; PULSE 18–94; RESP 12–22; TEMP 36.5–37.5; O2SAT 97–100
--- NOTE | 2020-12-01 03:11 | PC.NURSE ---
Was notified from day shift nurse of pt. having an episode in the bathroom where he blacked out and heart rate went into the 160's. Dr. Goldsmith did order for a bowel prep to be started at 1700 but was not done. Notified Grant Granger about pt. episode and unsure if the day shift MD was made aware of the incidence. Then Called Dr. Goldsmith to clarify that he still wanted the pt. to recive the bowel prep. Orders were given, see MAR. Blood was completed, pt. did say he was feeling better and no longer dizzy. Vital sings are taken, see worklist. After prep was completed pt. did have a large amount of straight liquid dark red stool.
[2020-12-01 06:59] LABS: Mean Corpuscular HGB Conc 32.4 g/dl (32-36); Mean Corpuscular Hemoglobin 29.2 pg (26-34); Mean Corpuscular Volume 90.1 fl (80-100); Mean Platelet Volume 9.6 fl (7.4-10.4); Platelet Count Result 195 k/mm3 (150-375); Red Blood Count 2.33 M/mm3 (4.6-6.20); Red Cell Distribution Width 19.5 % (11.5-14.5); White Blood Count 8.2 K/mm3 (4.5-10.0)
[2020-12-01 07:30] LABS: Hemoglobin 6.8 g/dL (14.0-18.0)
[2020-12-01 07:46] LABS: Anion Gap 4 mmol/L (8-16); Blood Urea Nitrogen 15 mg/dL (9-20); Calcium 7.5 mg/dL (8.4-10.2); Carbon Dioxide 24 mmol/L (22-30); Chloride 106 mmol/L (98-107); Estimated CRCL calculation 96 ml/min; Estimated Glomerular Filt Rate > 60; Glucose 120 mg/dL (65-110); Potassium 3.7 mmol/L (3.4-5.0); Sodium 134 mmol/L (137-145)
[2020-12-01] MEDS: PANTOPRAZOLE SODIUM IV 40 MG VIAL IV PUSH ×2 (12:42→20:40)
[2020-12-01] MEDS: SODIUM CHLORIDE 0.9% IV 250 ML 30 ML IV CONT (12:45)
--- NOTE | 2020-12-01 13:47 | WPDANESEPPF ---
Anes - Initial Pre Proc Eval Procedure: Operation Date: 12/01/20 13:45 Proposed Procedures p Esophagogastroduodenoscopy & Colonoscopy - Clifton Nelson MD Date/Time: 12/01/20 13:47 Surgeon: Nuno Saldivar MD Pre Op Diagnosis: Weakness, Anemia Patient Data Age: 55 Gender: M Height: 1.6 m Weight: 69.2 kg Last Vital Signs Temp 36.5 C 12/01/20 13:25 Pulse 18 L 12/01/20 13:25 Resp 18 12/01/20 13:25 BP 131/71 12/01/20 13:25 Pulse Ox 100 12/01/20 13:25 Allergies Allergy/AdvReac Type Severity Reaction Status Date / Time Penicillins Allergy Unknown Unknown Verified 12/01/20 13:30 Home Medications Medication Instructions Recorded Confirmed Type No Home Medications 11/28/20 11/28/20 History Laboratory Tests 11/28/20 11/30/20 11/30/20 20:40 16:23 22:52 WBC RBC Hgb 6.4 g/dL L* g/dL 8.7 g/dL L g/dL (14.0-18.0) (14.0-18.0) Hct 20.0 % L* % 27.3 % L % (42.0-52.0) (42.0-52.0) MCV MCH MCHC RDW Plt Count MPV Sodium Potassium Chloride Carbon Dioxide Anion Gap BUN Creatinine Estim Creat Clear Calc Estimated GFR Glucose Calcium Blood Type O Positive Antibody Screen Negative Crossmatch See Detail 12/01/20 12/01/20 06:22 06:22 WBC 8.2 K/mm3 K/mm3 (4.5-10.0) RBC 2.33 M/mm3 L M/mm3 (4.6-6.20) Hgb 6.8 g/dL L* g/dL (14.0-18.0) Hct 21.0 % L % (42.0-52.0) MCV 90.1 fl D fl (80-100) MCH 29.2 pg D pg (26-34) MCHC 32.4 g/dl g/dl (32-36) RDW 19.5 % H % (11.5-14.5) Plt Count 195 k/mm3 k/mm3 (150-375) MPV 9.6 fl fl (7.4-10.4) Sodium 134 mmol/L L mmol/L (137-145) Potassium 3.7 mmol/L mmol/L (3.4-5.0) Chloride 106 mmol/L mmol/L (98-107) Carbon Dioxide 24 mmol/L mmol/L (22-30) Anion Gap 4 mmol/L L mmol/L (8-16) BUN 15 mg/dL D mg/dL (9-20) Creatinine 0.60 mg/dL L mg/dL (0.7-1.3) Estim Creat Clear Calc 96 ml/min ml/min Estimated GFR > 60 (59 - ) Glucose 120 mg/dL H mg/dL (65-110) Calcium 7.5 mg/dL L mg/dL (8.4-10.2) Blood Type Antibody Screen Crossmatch Patient hx anesthesia problems: none Family hx anesthesia problems: none PMFSH Past Medical History Medical History (Updated 11/30/20 @ 13:00 by Clifton Nelson MD) Erosive gastritis Melena NSAID long-term use Patient denies medical problems Patient denies significant medical history Surgical History Surgical History No significant past surgical history Social History Social History Alcohol intake: current Drinks per week: 2 Substance use: never Gender identity (if verbalized by the patient): Male Spiritual care concerns: No Anes - Eval Final PreProcedure Day of Procedure 12/01/20 13:47 Patient weight: overweight Heart: regular rate and rhythm Lungs: clear to auscultation and normal air movement Airway: Mallampati scale class II Neurological: alert and oriented Last oral intake: >/= 8 hours ASA classification: III Emergent: yes Anesthetic plan: proceed Anesthesia type and monitoring: general GIVS and standard monitoring Informed Consent: The patient's anesthetic plan and its attendant risks and benefits were discussed with the patient/family/POA. Questions were solicited and answers provided to the satisfaction of the patient/family/POA.
[2020-12-01] MEDS: LACTATED RINGERS 1,000 ML 150 ML IV CONT (14:06)
--- NOTE | 2020-12-01 14:49 | SUR.OPER ---
egd with colonscope 224 started at 1447
--- NOTE | 2020-12-01 15:01 | SUR.OPER ---
small bowel enteroscopy ended 1500- colonoscopy started 1501
--- NOTE | 2020-12-01 15:39 | SUR.PHASEII ---
REPORT CALLED TO JONY FORDE. PT HAS CT SCAN STAT ORDERED. PT TRANSFERRED TO CT SCAN AND THEN WILL GO TO HIS ROOM. RN AWARE.
--- NOTE | 2020-12-01 17:23 | PC.NURSE ---
pt had a colonoscopy today while receiving blood products. After colonoscopy, CT took pt directly from GI lab. CT did not get the blood vitals due at 1509. pt back on the unit at 1622. nurse obtained vitals once he returned to the floor. At that time the transfusion was complete.
--- NOTE | 2020-12-01 19:00 | PM.IMPN ---
Progress Note: A&P Assessment and Plan (1) GI bleed: Code(s): K92.2 - Gastrointestinal hemorrhage, unspecified Status: Acute Assessment and Plan: Reported melena ongoing for 5 days prior to presentation. GI consulted. EGD on 11/29 showed moderate ulcerative gastritis without active bleeding. Hematin noted in the duodenum likely from the stomach, but no active bleeding seen on EGD. Hgb continued to drop so EGD/colonoscopy performed today. EGD showing gastritis but no AVMs to proximal jejunum. Colonoscopy showing internal hemorrhoids and diverticulosis without evidence of bleeding. Tolerating regular diet. Continue protonix b.i.d. Avoid NSAIDs. CT of the abdomen pelvis was performed with results noted. Will have to discuss with GI about the significance of these findings specially since he just had a colonoscopy. (2) Acute blood loss anemia: Code(s): D62 - Acute posthemorrhagic anemia Status: Acute Assessment and Plan: Secondary to GI bleed as above. Hgb 5.3 at presentation. Initially symptomatic with shortness of breath, palpitations, chest pain. Symptoms have resolved. He has received a total of 7 units of packed red blood cells. Hemoglobin this morning was 6.8 and he received the 7th unit. Nuclear medicine GI bleeding scan was negative. Continue to monitor H&H. (3) Chest pain: Code(s): R07.9 - Chest pain, unspecified Status: Inactive Assessment and Plan: Likely secondary to anemia with same onset as melena. Troponin negative. EKG reviewed with RBBB. Echocardiogram showing EF of 60-65% grade 1 diastolic dysfunction. Symptoms have resolved. Okay to stop telemetry (4) Weakness: Code(s): R53.1 - Weakness Status: Acute Assessment and Plan: As above, likely related to anemia. Significantly improved. Subjective Date/time seen: 12/01/20 19:00 Interval history: 55yo healthy male here for GI bleed. Feels '100%' now. No CP or SOB. No headache. Eating well now. No n/v. Exam Narrative: AF 98.2 156/60 80 16 99% ra Gen - NARD Chest - CTA bilaterally, nml RR CV - RRR S1/S2 Abd - Soft, NT/ND, Positive BS Ext - No pedal edema Neuro - Alert and oriented. Nonfocal exam. Psych - Nml mood and affect Skin - Warm and dry Objective Data Vital Signs Vital Signs: Vital Signs - 24 hr 11/30/20 20:00 11/30/20 21:53 12/01/20 00:00 Temperature 97.9 F Pulse Rate 109 H 92 92 Respiratory Rate 20 20 Blood Pressure 103/64 Pulse Oximetry 100 100 12/01/20 04:00 12/01/20 06:00 12/01/20 08:00 Temperature 98.3 F Pulse Rate 83 78 69 Respiratory Rate 20 Blood Pressure 120/56 L Pulse Oximetry 98 12/01/20 10:32 12/01/20 12:54 12/01/20 13:09 Temperature 99.5 F 99.5 F Pulse Rate 89 81 Respiratory Rate 12 14 Blood Pressure 102/66 102/66 Pulse Oximetry 98 97 99 12/01/20 13:25 12/01/20 13:54 12/01/20 14:22 Temperature 97.7 F 98.0 F 98.3 F Pulse Rate 18 L 80 82 Respiratory Rate 18 22 H 20 Blood Pressure 131/71 122/65 121/66 Pulse Oximetry 100 100 100 12/01/20 15:11 12/01/20 15:21 12/01/20 15:31 Temperature Pulse Rate 90 86 73 Respiratory Rate 22 H 18 20 Blood Pressure 94/58 L 92/48 L 117/58 L Pulse Oximetry 100 100 100 12/01/20 16:10 Temperature 98.2 F Pulse Rate 80 Respiratory Rate 16 Blood Pressure 156/60 H Pulse Oximetry 99 Intake/Output Intake/Output: Intake & Output 11/28/20 11/29/20 11/30/20 12/01/20 23:59 23:59 23:59 23:59 Intake Total 2428 2480 1660 Output Total 1300 550 Balance 1128 1930 1660 Meds/Results Medications: Active Medications Generic Name Dose Route Start Last Admin Trade Name Freq PRN Reason Stop Dose Admin Pantoprazole Sodium 40 mg 11/29/20 09:00 12/01/20 12:42 Pantoprazole Sodium Iv 40 Mg Vial IV PUSH 40 mg Q12HR GUIDO Administration Radiology Results: ITS Impressions Chest X-Ray 11/28/20 17:51 IMPRESSION: No active cardiopu
[2020-12-01 19:26] LABS: Hematocrit 25.1 % (42.0-52.0)
[2020-12-02] VITALS: PULSE 83
[2020-12-02 04:00] VITALS: PULSE 74
[2020-12-02 05:59] VITALS: BP 110/62; PULSE 61; RESP 18; TEMP 36.4; O2SAT 100
[2020-12-02 07:50] LABS: Hematocrit 24.9 % (42.0-52.0); Hemoglobin 7.7 g/dL (14.0-18.0); Mean Corpuscular HGB Conc 30.9 g/dl (32-36); Mean Corpuscular Hemoglobin 28.4 pg (26-34); Mean Corpuscular Volume 91.9 fl (80-100); Mean Platelet Volume 9.5 fl (7.4-10.4); Platelet Count Result 193 k/mm3 (150-375); Red Blood Count 2.71 M/mm3 (4.6-6.20); Red Cell Distribution Width 19.6 % (11.5-14.5); White Blood Count 7.4 K/mm3 (4.5-10.0)
[2020-12-02 08:00] VITALS: PULSE 80
[2020-12-02] MEDS: PANTOPRAZOLE SODIUM IV 40 MG VIAL IV PUSH (09:24)
--- NOTE | 2020-12-02 09:28 | PM.DS ---
DS: Admitting Diagnosis Discharge Date GI bleed Admitting Diagnosis GI bleed DS: Discharge Diagnosis Discharge Diagnosis (1) GI bleed: Code(s): K92.2 - Gastrointestinal hemorrhage, unspecified Status: Acute Assessment and Plan: Reported melena ongoing for 5 days prior to presentation. GI consulted. EGD on 11/29 showed moderate ulcerative gastritis without active bleeding. Hematin noted in the duodenum likely from the stomach, but no active bleeding seen on EGD. Hgb continued to drop so EGD/colonoscopy performed today. EGD showing gastritis but no AVMs to proximal jejunum. Colonoscopy showing internal hemorrhoids and diverticulosis without evidence of bleeding. Tolerating regular diet. Continue protonix b.i.d. Avoid NSAIDs. CT of the abdomen pelvis was performed with results noted. Will have to discuss with GI about the significance of these findings specially since he just had a colonoscopy. (2) Acute blood loss anemia: Code(s): D62 - Acute posthemorrhagic anemia Status: Acute Assessment and Plan: Secondary to GI bleed as above. Hgb 5.3 at presentation. Initially symptomatic with shortness of breath, palpitations, chest pain. Symptoms have resolved. He has received a total of 7 units of packed red blood cells. Hemoglobin this morning was 6.8 and he received the 7th unit. Nuclear medicine GI bleeding scan was negative. Continue to monitor H&H. (3) Chest pain: Code(s): R07.9 - Chest pain, unspecified Status: Inactive Assessment and Plan: Likely secondary to anemia with same onset as melena. Troponin negative. EKG reviewed with RBBB. Echocardiogram showing EF of 60-65% grade 1 diastolic dysfunction. Symptoms have resolved. Okay to stop telemetry (4) Weakness: Code(s): R53.1 - Weakness Status: Acute Assessment and Plan: As above, likely related to anemia. Significantly improved. DS: Summary Hospital Course Hospital Course: Uneventful Time Spent with Patient Time attestation: Patient is 55 years old male was admitted with complaint of generalized weakness. Patient was found to have hemoglobin of 5.4. Patient was also noticed to have GI bleed. Patient was given H2 blockers and hemoglobin also monitor and replace as needed. Today patient is feeling better so patient discharged home in stable condition. Will monitor CBC as an outpatient. Patient will also see operating room aide on outpatient next week. Exam Narrative: AF 98.2 156/60 80 16 99% ra Gen - NARD Chest - CTA bilaterally, nml RR CV - RRR S1/S2 Abd - Soft, NT/ND, Positive BS Ext - No pedal edema Neuro - Alert and oriented. Nonfocal exam. Psych - Nml mood and affect Skin - Warm and dry Const: General: cooperative, comfortable, no acute distress, well developed, alert, awake, Physically active and other (Well-appearing) Nutritional Appearance: average body habitus Orientation/consciousness: patient oriented x3 HENMT: Head: normal to inspection, normocephalic and atraumatic Ears: hearing grossly normal bilaterally General nose exam: Normal external nose present Face and sinus: normal facial exam Mouth: Yes Normal oral and palatal mucosa present Eyes: General: appearance normal, both eyes and all related structures Alignment and Position: alignment normal Sclera: sclerae normal Pupils: Equal, round and reactive pupils present EOM: EOMs intact bilaterally Neck: Neck: normal visual inspection, full ROM, no lymphadenopathy, supple and no JVD Thyroid: thyroid normal Lymphatic: no lymphadenopathy noted Resp: Effort & Inspection: normal respiratory effort and able to speak in complete sentences Auscultation: clear to auscultation bilaterally Cardio: Jugular venous distension: no JVD Rate: regular rate Rhythm: regular rhythm Heart sounds: S1 normal heart sound present and S2 normal heart sound present GI: Inspection: normal to inspection : General: Yes deferred Sk
[2020-12-02 12:00] VITALS: PULSE 80
--- NOTE | 2020-12-02 12:20 | WPDGIPROGNO ---
Progress Note: A&P Assessment and Plan (1) Melena: Code(s): K92.1 - Melena Status: Acute Assessment and Plan: repeat egd yesterday with small non-bleeding , also reached proximal jejunum using colonoscope and did not find other source of bleeding, also had large diverticula in 2nd portion of duodenum colonoscopy unremarkable, did not find any AVM's (Reviewed CTA a/p, normal aorta, possible AVM in descending colon but colonoscopy exam negative) he can go home with protonix daily check cbc in ~ 2 weeks EGD in about 2 months no need to repeat another colonoscopy for 10 years (for screening purpose) unless other symptom (2) Acute blood loss anemia: Code(s): D62 - Acute posthemorrhagic anemia Status: Acute Assessment and Plan: scopes yesterday, also had negative GI NM study ppi also will go home with iron supplement do not use any nsaid's (discussed with patient) (3) Erosive gastritis: Code(s): K29.60 - Other gastritis without bleeding Status: Acute (4) NSAID long-term use: Code(s): Z79.1 - senior living (current) use of non-steroidal anti-inflammatories (NSAID) Status: Acute (5) Pre-syncope: Code(s): R55 - Syncope and collapse Status: Acute Subjective Date/time seen: 12/02/20 12:20 Interval history: EGD yesterday with small gastric ulcers but no bleeding, also diverticulum in duodenum and small amount of hematin in proximal SB. Colonoscopy without signs of bleeding and no AVM. Patient is feeling much better today and he is going home. Review of Systems Review of Systems: All systems reviewed & are unremarkable except as noted in HPI and below Exam Const: General: comfortable and no acute distress HENMT: General nose exam: Normal nares present Eyes: General: appearance normal, both eyes and all related structures Neck: Neck: no JVD Resp: Auscultation: clear to auscultation bilaterally Cardio: Rate: regular rate Rhythm: regular rhythm GI: Inspection: non-distended GI Palp: Yes Soft to palpation and No Guarding due to palpation present (GI) Auscultation: normal bowel sounds Skin: General skin exam: normal color Neuro: Speech: normal speech Motor exam (neuro): Normal motor muscle tone present throughout Extrem: General: normal to inspection Psych: Mental Status: mental status grossly normal Objective Data Vital Signs Vital Signs: Vital Signs - 24 hr 12/01/20 12:54 12/01/20 13:09 12/01/20 13:25 Temperature 99.5 F 99.5 F 97.7 F Pulse Rate 89 81 18 L Respiratory Rate 12 14 18 Blood Pressure 102/66 102/66 131/71 Pulse Oximetry 97 99 100 12/01/20 13:54 12/01/20 14:22 12/01/20 15:11 Temperature 98.0 F 98.3 F Pulse Rate 80 82 90 Respiratory Rate 22 H 20 22 H Blood Pressure 122/65 121/66 94/58 L Pulse Oximetry 100 100 100 12/01/20 15:21 12/01/20 15:31 12/01/20 16:00 Temperature Pulse Rate 86 73 90 Respiratory Rate 18 20 Blood Pressure 92/48 L 117/58 L Pulse Oximetry 100 100 12/01/20 16:10 12/01/20 20:00 12/01/20 22:00 Temperature 98.2 F 97.9 F Pulse Rate 80 74 94 Respiratory Rate 16 18 Blood Pressure 156/60 H 117/56 L Pulse Oximetry 99 100 12/02/20 00:00 12/02/20 04:00 12/02/20 05:59 Temperature 97.5 F L Pulse Rate 83 74 61 Respiratory Rate 18 Blood Pressure 110/62 Pulse Oximetry 100 12/02/20 08:00 Temperature Pulse Rate 80 Respiratory Rate Blood Pressure Pulse Oximetry Intake/Output Intake/Output: Intake & Output 11/29/20 11/30/20 12/01/20 12/02/20 23:59 23:59 23:59 23:59 Intake Total 2428 2480 1660 240 Output Total 1300 550 Balance 1128 1930 1660 240 Meds/Results Medications: Active Medications Generic Name Dose Route Start Last Admin Trade Name Freq PRN Reason Stop Dose Admin Pantoprazole Sodium 40 mg 11/29/20 09:00 12/02/20 09:24 Pantoprazole Sodium Iv 40 Mg Vial IV PUSH 40 mg Q12HR GUIDO Administration Radiology Results: ITS I
== END 2020-12-02 13:55 | disposition home or self-care (01) | DRG 378 ==
LOC: ANHED 18:43 → ANH3MEDSUR 21:43
PROVIDERS: Emergency Medicine; Internal Medicine Gastroenterology; Physician Assistant; Admitting Provider Internal Medicine; Emergency Provider Emergency Medicine; Visit Provider Internal Medicine
PROC: 0DJ08ZZ Inspection of Upper Intestinal Tract, Via Natural or Artificial Opening Endoscopic (ICD-10-PCS; CPT 43235; principal; 2020-11-29 13:45)
DX: K92.1 Melena (principal); D62 Acute posthemorrhagic anemia; K29.60 Other gastritis without bleeding; K21.00 Gastro-esophageal reflux disease with esophagitis, without bleeding; K44.9 Diaphragmatic hernia without obstruction or gangrene; K57.10 Diverticulosis of small intestine without perforation or abscess without bleeding; K57.30 Diverticulosis of large intestine without perforation or abscess without bleeding; K64.8 Other hemorrhoids; R55 Syncope and collapse; R07.9 Chest pain, unspecified; R53.1 Weakness; Z79.1 Long term (current) use of non-steroidal anti-inflammatories (NSAID); Z88.0 Allergy status to penicillin
CPT/HCPCS: 36415; 36430; 71046; 74174; 78278; 80048; 80053; 81001; 84484; 85014; 85018; 85025; 85027; 86850; 86900; 86901; 86920; 87081; 88305; 93005; 93306; 96374; 99285; A9270; A9560; C9113; J2704; J7050; J7060; J7120; P9016; Q9967

== ENCOUNTER 2020-12-28 15:55 | Outpatient (CLI) | payer BC, SELFPAY ==
[2020-12-28 16:17] LABS: Hematocrit 36.5 % (42.0-52.0); Hemoglobin 11.9 g/dL (14.0-18.0); Mean Corpuscular HGB Conc 32.6 g/dl (32-36); Mean Corpuscular Hemoglobin 30.1 pg (26-34); Mean Corpuscular Volume 92.4 fl (80-100); Mean Platelet Volume 9.1 fl (7.4-10.4); Platelet Count Result 306 k/mm3 (150-375); Red Blood Count 3.95 M/mm3 (4.6-6.20); Red Cell Distribution Width 14.7 % (11.5-14.5); White Blood Count 7.2 K/mm3 (4.5-10.0)
== END 2020-12-28 15:56 | disposition home or self-care (01) ==
LOC: ANHLAB 15:57
PROVIDERS: PCP Internal Medicine; Visit Provider Internal Medicine Gastroenterology
DX: D62 Acute posthemorrhagic anemia (principal); K29.60 Other gastritis without bleeding
CPT/HCPCS: 36415; 85027

== ENCOUNTER 2022-07-19 12:20 | Emergency (ER) | payer BC, SELFPAY ==
[2022-07-19 12:32] VITALS: BP 138/87; PULSE 69; RESP 16; TEMP 36.9; O2SAT 99
--- NOTE | 2022-07-19 13:56 | ED.DIZZY ---
HPI - Dizziness General Chief Complaint: Dizziness Stated Complaint: Dizziness Time Seen by Provider: 07/19/22 13:56 Source: patient and RN notes reviewed Mode of arrival: ambulatory Limitations: no limitations History of Present Illness HPI Narrative: 56 y/o male presented for c/o dizziness. States last night at 0100, he was working under the sink when he felt dizzy like the room was spinning. States he went to bed, but woke and was still having dizziness. Reports it is worse laying down flat and on right side, or when moving head too fast. 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 Patient also reports blurry vision x5 days, stating it is constant. He is able to drive without difficulty. Endorses nasal congestion, and says face feels puffy. Not taking anything for pain. Denies cp, palpitations, headache, n/v/d/f/c. Related Data Allergies Allergy/AdvReac Type Severity Reaction Status Date / Time Penicillins Allergy Severe Other Verified 07/19/22 13:39 Review of Systems Review of Systems: CONSTITUTIONAL: Denies body aches, fever, chills, or sweats. EYES:Reports blurred vision bilaterally; denies redness, or discharge. ENT: Denies rhinorrhea, congestion, sore throat, or otalgia. CARDIOVASCULAR: Denies chest pain, palpitations, or edema. RESPIRATORY: Denies cough or dyspnea. GASTROINTESTINAL: Denies abdominal pain, nausea, vomiting, or diarrhea. SKIN: Denies rash, itching, or wounds. MUSCULOSKELETAL: Denies back pain, joint pain, or myalgia. NEUROLOGIC: Endorses dizziness; denies numbness, tingling, or weakness PSYCH: Denies depression or anxiety. All systems reviewed & are unremarkable except as noted in HPI and below PMFSH Past Medical History Medical History Colon cancer screening Erosive gastritis Melena NSAID long-term use Patient denies medical problems Patient denies significant medical history Pre-syncope Surgical History Surgical History No significant past surgical history Social History Social History Alcohol intake: current Drinks per week: 2 Substance use: never Living arrangements: with family Occupation/Education: occupation Gender identity (if verbalized by the patient): Male Spiritual care concerns: No Comments At time of signature, I have reviewed and agree with nursing past medical, surgical, social and family history unless otherwise noted. Please see nursing chart for further information. There is no relevant family history pertinent to the presenting complaint Exam Narrative: GENERAL: Well-appearing, well-nourished HEAD: Normocephalic, atraumatic. EYES: PERRLA, EOMI. ENT: Mucous membranes pink and moist. No rhinorrhea. TMs normal bilaterally. NECK: Normal AROM. Supple. No lymphadenopathy. CHEST: Clear to auscultation. HEART: Regular rate and rhythm. No murmur appreciated. Normal peripheral pulses. EXTREMITIES: Normal range of motion. No edema. SKIN: Warm, dry, no rash. Capillary refill normal. Normal skin turgor. NEURO:No focal deficits. Alert and oriented x3. Finger to nose intact bilaterally. EOMs intact without nystagmus. No facial droop/asymmetry noted bilaterally. Grimace intact. Intact sensation in face. Hearing intact bilaterally. Shoulder shrug intact. Strength 5/5 bilateral upper extremities. Strength 5/5 bilateral lower extremities. Ambulatory exam with a normal based, steady gait. PSYCH: Normal affect. Course Course Emergency Course: Patient is aware of diagnosis, understands and agrees to treatment plan. Anticipatory guidance given. Patient agrees to follow-up as directed and is aware of reasons to seek care at the emergency department. Portions of this record may have been created with
== END 2022-07-19 14:26 | disposition home or self-care (01) ==
PROVIDERS: Emergency Provider Nurse Practitioner Family; PCP Internal Medicine
DX: H81.10 Benign paroxysmal vertigo, unspecified ear (principal); H53.9 Unspecified visual disturbance
CPT/HCPCS: 99213; G0463